=== PATIENT | male | born 1965 ===

== ENCOUNTER 2024-09-16 17:29 | Emergency (ER) | payer OTHER, SELFPAY ==
[2024-09-16 17:32] VITALS: BP 135/66; PULSE 82; RESP 18; TEMP 36.4; O2SAT 96
--- NOTE | 2024-09-16 18:00 | DI.RAD_ITS ---
Exam(s) XR RIBS LT W PA LAT CHEST EXAM: XR RIBS LT W PA LAT CHEST CLINICAL HISTORY: fall/pain. TECHNIQUE: 2D digital imaging was performed. COMPARISON: No exams were available for comparison FINDINGS: Total 6 views Left ribs-four views: There are no obvious left rib fractures. No left rib lesions. CXR- 2 Views: Heart size normal and the mediastinum is not widened. There are no infiltrates nor ple ural effusions. There is no pneumothorax. No fracture seen IMPRESSION: 1. No evidence of left rib fractures. 2. No acute pulmonary findings. No pneumothorax. DATA REPOSITORY: RADIATION DOSE DELIVERED:
--- NOTE | 2024-09-16 18:07 | ED.GENADUL_ITS ---
Discharge Plan Disposition Patient Disposition: Home Condition: Improving Discharge Details Chief Complaint: Fall/Non TraumaCriteria Clinical Impression: Fall, Acute back pain, Neck pain Primary Care Provider: [place] [place] ED Provider: Renard Rogers Discharge Instructions Instructions: Neck pain, Upper Back Pain, Preventing Falls ED Additional Instructions: X-ray is unremarkable. As we discussed [id number] Tylenol and Motrin as directed. Prescription for Flexeril provided, take as directed, remember this may cause drowsiness. Rest, gentle stretching, cool and/or warm compresses as tolerated. Please watch for new or worsening symptoms and return immediately to the ER. Otherwise please follow-up with your Workmen's Compensation provider as this was a work-related injury. Stand Alone Forms: Work Release HPI General Mode of arrival: ambulatory . Date/Time Provider Initiated Documentation: 09/16/24 17:42 . Limitations to Documentation: no limitations . Information obtained by: patient . History of Present Illness 58 year old M presents to the emergency department with the chief complaint of Fall, described as moderate, with intensity rated at 6. Quality is described as aching, and is localized to the back. Patient reports no radiation. Patient started experiencing this minute(s) (30) and it has been constant. No relieving factors improve symptom(s), Movement worsens symptoms . Patient notes no other symptoms.. Patient did receive the following treatments prior to arrival, other (Tylenol) Related Data Allergies Allergy/AdvReac Type Severity Reaction Status Date / Time No Known Allergies Allergy Unverified 09/16/24 17:31 General Stated Complaint: Fall/Non TraumaCriteria MANDO: 4 Review of Systems Constitutional Constitutional: Denies headache(s) and Denies weakness Eyes Eyes: Denies blurry vision ENT Ears, Nose, Mouth, and Throat: Denies headache(s) and Reports neck pain (Left- sided) Cardiovascular Cardiovascular: Denies chest pain and Denies dyspnea Respiratory Respiratory: Denies dyspnea Gastrointestinal Gastrointestinal: Denies abdominal pain, Denies nausea and Denies vomiting Musculoskeletal Musculoskeletal: Reports back pain, Reports neck pain (Left-sided), Denies numbness and Denies tingling Neurologic Neurologic: Denies headache(s), Denies numbness, Denies tingling and Denies weakness Exam Const General: cooperative, healthy appearing, comfortable and no acute distress Orientation: alert, awake and oriented x3 HENMT Head: normal to inspection, normocephalic and atraumatic General nose exam: external nose normal Face and sinus: normal facial exam Mouth: moist mucous membranes Eyes General: appearance normal, both eyes and all related structures Conjunctivae: conjunctivae normal Neck Neck: normal visual inspection, full ROM, no meningeal signs, trachea midline, supple and tender (Left paravertebral and trapezius) Other: No midline tenderness Chest Chest: normal palpation of entire chest wall Resp Effort & Inspection: normal respiratory effort and able to speak in complete sentences Auscultation: clear to auscultation bilaterally Cardio Rate: regular rate Rhythm: regular rhythm GI Palpation: soft and nontender Back/Spine/Pelvis Back: no CVA tenderness and back tenderness (Left thoracic, no midline tenderness) Pelvis: no pain with anterior-posterior compression and no pain with lateral compression Other: No lumbar discomfort Skin General skin exam: no rashes or lesions noted Neuro General: patient alert, patient awake, moves all extremities and no focal motor deficits Cognition: normal cognition Speech: speech normal Gait: normal gait Motor: muscle tone normal throughout Sensory Exam: no sensory deficits noted Extrem General: normal to inspection, full ROM, capillary refill normal and normal gait Psych Appearance: grossly normal Mental Status: mental status grossly normal Course Vital Signs Vital signs: Vital Signs Temperature 36.4 C 09/16/24 17:32 Pulse 82 09/16/24 17:32 Respiratory Rate 18 09/16/24 17:32 Blood Pressure 135/66 09/16/24 17:32 Pulse Oximetry 96 09/16/24 17:32 Temperature 36.4 C 09/16/24 17:32 Temperature Source Oral 09/16/24 17:32 Pulse 82 09/16/24 17:32 Respiratory Rate 18 09/16/24 17:32 Blood Pressure 135/66 09/16/24 17:32 Blood Pressure Position Sitting 09/16/24 17:32 Pulse Oximetry 96 09/16/24 17:32 Oxygen Delivery Method Room Air 09/16/24 17:32 Oxygen Flow Rate 0 09/16/24 17:32 Pain Level 7 09/16/24 17:32 Medical Decision Making 58-year-old male who denies significant past medical history reports slipping at work about 30 minutes ago landing on his left side. Did not strike his head. No LOC. Reports left-sided neck pain, and left thoracic pain. Mild left hip pain but this has resolved mostly with Tylenol. Denies any numbness, tingling, or weakness. He attempted to continue cleaning and with movement had increased pain so decided come to the ER. Clinically patient appears well, nontoxic, neurologically intact. No midline point tenderness. Speaks in full sentences, lungs are clear to auscultation, no evidence of pneumothorax. No indication for dedicated cervical or thoracic spine x-rays. Will obtain chest x-ray to rule out pneumothorax as well as left rib series given his posterior pain. Will also provide 60 mg IM Toradol. Upon reassessment patient reports moderate improvement with IM Toradol. X-ray of the chest and left rib series reviewed by me and officially read by radiology as negative for acute bony abnormality or pneumothorax. Discussed findings with patient. Will provide prescription for Flexeril. Will take [id number] NSAIDs. Discussed resting, gentle stretching, cool and/or warm compresses as tolerated. Will keep out of work tomorrow. Encouraged to watch for new or worsening symptoms and return immediately to the ER. Otherwise I recommend following up with occupational health given this was a reported injury. Standard discharge and return precautions were provided. Patient understands, is agreeable to this plan, and has no additional questions or concerns upon discharge. This documentation was generated using [id number] dictation system, please disregard any oddities of phrase or misspellings. Quality:SDOH Health Related Social Needs: No Data to Display PFSH All Active Problems (Updated 09/16/24 @ 19:21 by ERIKA Cruz) Neck pain (Acute) Acute back pain (Acute) Fall (Acute) Social History Smoking/Tobacco Use Status: Former Tobacco Use Quit Date: 05/05/94 Smoking risk assessment performed?: Yes Alcohol Intake: former Substance use type: does not use
[2024-09-16] MEDS: Ketorolac 60 MG/2 ML VIAL IM (18:28)
[2024-09-16 19:34] VITALS: BP 135/66; PULSE 82; RESP 18; TEMP 36.4; O2SAT 96
== END 2024-09-16 19:34 | disposition home or self-care (01) ==
PROVIDERS: Emergency Provider Physician Assistant
DX: M54.2 Cervicalgia (principal); M54.6 Pain in thoracic spine; W01.0XXA Fall on same level from slipping, tripping and stumbling without subsequent striking against object, initial encounter; Y93.E5 Activity, floor mopping and cleaning; Y92.89 Other specified places as the place of occurrence of the external cause; Y99.0 Civilian activity done for income or pay; Z87.891 Personal history of nicotine dependence
CPT/HCPCS: 96372; 99284; 71046; 71100; J1885